=== PATIENT | female | born 1960 | race Caucasian/White ===

== ENCOUNTER 2017-04-21 12:59 | Day surgery (SDC) | payer BC ==
[~2017-04-21] VITALS: Ht 162.6 cm; Wt 61.9 kg
[~2017-04-21 12:59] MED LIST: FLONASE ALLERG9.9 ML; METR59TL
== END 2017-04-21 14:55 | disposition home or self-care (01) ==
LOC: ORSCSDS 12:59
PROVIDERS: Surgery
PROC: 0DJD8ZZ Inspection of Lower Intestinal Tract, Via Natural or Artificial Opening Endoscopic (ICD-10-PCS; principal; 2017-04-21 14:15)
DX: Z12.11 Encounter for screening for malignant neoplasm of colon (principal); Z80.0 Family history of malignant neoplasm of digestive organs; Z79.899 Other long term (current) drug therapy

== ENCOUNTER → 2018-04-09 | Outpatient (CLI) | payer BC ==
[2018-04-13 16:07] LABS: HPV 16 Negative (Negative); HPV 18 Negative (Negative); HPV OTHER HR TYPES Negative (Negative)
== END ==
LOC: LAB SHORT 10:30 → LAB 10:30
PROVIDERS: Nurse Practitioner Family
DX: Z00.00 Encounter for general adult medical examination without abnormal findings (principal); N95.9 Unspecified menopausal and perimenopausal disorder; Z78.0 Asymptomatic menopausal state
CPT/HCPCS: 87624; G0145

== ENCOUNTER → 2019-09-02 | Outpatient (CLI) | payer BC | END | disposition home or self-care (01) | LOC: PLD 08:00 → LAB SHORT 08:00 | DX: D11.0 Benign neoplasm of parotid gland (principal) | CPT/HCPCS: 88173 ==

== ENCOUNTER 2019-12-15 09:08 | Day surgery (SDC) | payer BC ==
[~2019-12-15] VITALS: Ht 162.6 cm; Wt 60.6 kg
[~2019-12-15 09:08] MED LIST changes: +Estrace Vagin42.5 GM; +MULTI-VITAMIN1 EAC2 PO; +TUMS500 MG PO; +Vitamin D2000 UNIT PO
--- NOTE | 2019-12-15 12:31 | NUR ---
12/15/19 1231 Marissa Avelar 0.25 MLS OF EPI ADDED TO 0.9% SODIUM CHLORIDE 50 ML BOTTLE TO MAKE AN EPI CONCENTRATION OF 1:200,000. DR. IBANEZ INJECTED 4 MLS BEFORE SURGERY START.
--- NOTE | 2019-12-15 14:38 | NUR ---
12/15/19 1438 RIVER MORENO PATIENT TO RECLINER FROM BED. PATIENT VSS - ON ROOM AIR. PATIENT REPORTS PAIN 09/14. PATIENT MEDICATED PER ANESTHESIA ORDERS WITH IV FENTANYL. PATIENT'S TO BEDSIDE. TOLERATING SIPS OF CLEAR LIQUIDS.
== END 2019-12-15 15:26 | disposition home or self-care (01) ==
LOC: ORSCSDS 09:08
PROVIDERS: Otolaryngology
PROC: 00BM0ZZ Excision of Facial Nerve, Open Approach (ICD-10-PCS; principal; 2019-12-15 10:30)
PROC: 0CB80ZZ Excision of Right Parotid Gland, Open Approach (ICD-10-PCS; principal; 2019-12-15 10:30)
PROC: 0NBT0ZZ Excision of Right Mandible, Open Approach (ICD-10-PCS; principal; 2019-12-15 10:30)
DX: D11.0 Benign neoplasm of parotid gland (principal)
CPT/HCPCS: 88305; 88307; 88311; J0171; J1100; J2250; J2405; J2704; J3010; J7120

== ENCOUNTER 2020-07-17 08:25 | Day surgery (SDC) | payer BC ==
[~2020-07-17] VITALS: Ht 162.6 cm; Wt 61.3 kg
--- NOTE | 2020-07-17 13:10 | NUR ---
07/17/20 1310 Ary Flores NO CAUTERY USED.
== END 2020-07-17 12:20 | disposition home or self-care (01) ==
LOC: ORSCSDS 08:25
PROVIDERS: Student in an Organized Health Care Education/Training Program
PROC: 0DBK8ZX Excision of Ascending Colon, Via Natural or Artificial Opening Endoscopic, Diagnostic (ICD-10-PCS; principal; 2020-07-17 09:45)
PROC: 3E0H8KZ Introduction of Other Diagnostic Substance into Lower GI, Via Natural or Artificial Opening Endoscopic (ICD-10-PCS; principal; 2020-07-17 09:45)
DX: K92.1 Melena (principal); D12.2 Benign neoplasm of ascending colon; Z80.0 Family history of malignant neoplasm of digestive organs; K64.8 Other hemorrhoids
CPT/HCPCS: 88305; J2704; J7120